=== PATIENT | female | born 1970 | race African-American/Black ===

== ENCOUNTER 2020-08-07 05:54 | Day surgery (SDC) | payer BC ==
[2020-08-02 13:40] VITALS: BP 125/75
[2020-08-02 14:00] LABS: BASOPHILS % (AUTO) 0.5 % (0.0-5.0); EOSINOPHILS % (AUTO) 1.3 % (0.0-8.0); HEMATOCRIT 38.2 % (36-48); LYMPHOCYTES % (AUTO) 51.8 % (21.0-51.0); MEAN CORPUSCULAR HEMOGLOBIN 30.1 pg (27.0-33.0); MEAN CORPUSCULAR HGB CONC 34.3 g/dL (32.0-36.0); MEAN CORPUSCULAR VOLUME 87.8 fL (79-99); MONOCYTES % (AUTO) 6.4 % (3.0-13.0); NEUTROPHILS % (AUTO) 39.9 % (40.0-77.0); PLATELET COUNT (AUTO) 299 K/uL (130-400); RED BLOOD CELL COUNT(AUTO) 4.35 MIL/uL (4.00-5.50); RED CELL DISTRIBUTION WIDTH 12.2 % (11.0-15.5); WHITE BLOOD COUNT (AUTO) 7.6 K/uL (4.8-10.8)
[2020-08-02 14:13] LABS: CREATININE 0.8 mg/dL (0.5-1.5); POTASSIUM 3.6 mmol/L (3.5-5.1)
[~2020-08-07] VITALS: Ht 157.5 cm; Wt 54.3 kg
[~2020-08-07 05:54] MED LIST: ATOR10TA69 PO; CEFAZOLIN SODIUM 1 GM VIAL IVP SCH; LACTATED RINGERS 1000ML 1,000 ML IV SCH; METF-444 PO
[2020-08-07] MEDS ORDERED: CEFAZOLIN SODIUM 1 GM VIAL ONE (06:21)
[2020-08-07] MEDS ORDERED: SODIUM CHLORIDE 0.9% 1000ML 0 ML IV ONE (06:21)
[2020-08-07 06:31] VITALS: BP 127/77
== END 2020-08-07 08:00 | disposition home or self-care (01) ==
LOC: DAH 05:54
PROVIDERS: ATTEND Obstetrics & Gynecology
DX: N95.0 Postmenopausal bleeding (principal); Z20.822 Contact with and (suspected) exposure to COVID-19; E78.5 Hyperlipidemia, unspecified; E11.9 Type 2 diabetes mellitus without complications; Z79.84 Long term (current) use of oral hypoglycemic drugs; Z79.899 Other long term (current) drug therapy; Z53.8 Procedure and treatment not carried out for other reasons
CPT/HCPCS: 36415; 80048; 82948; 84703; 85025; 86850; 86900; 86901; A4215; A4221; A4222; A4223; A4510; A4600; A4657; A4663; A6260; C9803; U0003; J0690; J7030

== ENCOUNTER 2020-08-21 06:35 | Day surgery (SDC) | payer BC ==
[2020-08-18 11:10] VITALS: BP 117/78
[2020-08-21] VITALS (15 sets, daily range): BP systolic 111–135; BP diastolic 65–80
[~2020-08-21] VITALS: Ht 157.5 cm; Wt 53.4 kg
[~2020-08-21 06:35] MED LIST changes: -CEFAZOLIN SODIUM 1 GM VIAL IVP SCH; -LACTATED RINGERS 1000ML 1,000 ML IV SCH
[2020-08-21] MEDS ORDERED: SODIUM CHLORIDE 0.9% 1000ML 1,000 ML IV ONE (06:51)
[2020-08-21] MEDS: CEFAZOLIN SODIUM 1 GM VIAL ONE ×2 (07:19→08:03)
[2020-08-21] MEDS ORDERED: MIDAZOLAM HCL 1 MG/ML 2ML VIAL ONE (07:24)
[2020-08-21] MEDS ORDERED: LIDOCAINE PF 2% 5ML ABBOJECT ONE (07:24)
[2020-08-21] MEDS ORDERED: FENTANYL CITRATE PF 50 MCG/1 ML 2ML VIAL ONE (07:24)
[2020-08-21] MEDS ORDERED: PROPOFOL 10 MG/ML 20ML VIAL IV ONE (07:24)
[2020-08-21] MEDS ORDERED: CEFAZOLIN SODIUM 1 GM VIAL IVP ONE (08:03)
[2020-08-21] MEDS ORDERED: SODIUM CHLORIDE 0.9% 10 ML VIAL ONE (08:04)
[2020-08-21] MEDS ORDERED: PHENYLEPHRINE HCL 10 MG/ML 1ML VIAL IV ONE (08:04)
[2020-08-21] MEDS ORDERED: DEXAMETHASONE SOD PHOSPHATE 4 MG/ML 1ML VIAL ONE (08:10)
[2020-08-21] MEDS ORDERED: ONDANSETRON HCL 4 MG/2 ML VIAL ONE (08:11)
[2020-08-21] MEDS ORDERED: MEPERIDINE-PF 25 MG/ML SYG ONE ×2 (08:48→09:00)
== END 2020-08-21 10:15 ==
LOC: DAH 06:35
PROVIDERS: ATTEND Obstetrics & Gynecology
DX: N95.0 Postmenopausal bleeding (principal); E11.9 Type 2 diabetes mellitus without complications; E78.5 Hyperlipidemia, unspecified; G43.909 Migraine, unspecified, not intractable, without status migrainosus; Z20.828 Contact with and (suspected) exposure to other viral communicable diseases; Z79.84 Long term (current) use of oral hypoglycemic drugs; Z79.899 Other long term (current) drug therapy
CPT/HCPCS: 36415 ×2; 58558; 82948 ×2; 84703; 86850 ×2; 86900 ×2; 86901 ×2; A4215; A4221; A4222; A4223; A4351; A4355; A4510; A4600; A4663; A4930; C9803; J0690 ×2; J1100; J2001; J2175 ×2; J2250; J2370; J2405; J2704; J3010; J7030 ×2; U0003